=== PATIENT | male | born 1995 | race Caucasian/White ===

== ENCOUNTER 2018-11-13 15:35 | Emergency (ER) | payer BC ==
[~2018-11-13] VITALS: Ht 180.3 cm; Wt 124.9 kg
[~2018-11-13 15:35] MED LIST: DOCU-144 PO; HYDR25SU23 PR
[2018-11-13 15:45] VITALS: BP 169/93; PULSE 98; RESP 17; Ht 180.3 cm; Wt 124.9 kg
--- NOTE | 2018-11-13 17:05 | ERD ---
ER Documentation Chief Complaint Chief Complaint BLOOD STREAKS ON STOOL, MILD PAIN, NO ABD DISTENSION, NO N/V HPI 23-year-old male otherwise healthy presents complaining of rectal pain. He has a history of hemorrhoids and thinks this feels similar. He is also noticed some blood streaks in his stool and on the paper when he wipes. This is been going on for about a week but got worse today. He called his primary care doctor to make an appointment and the nurse on the phone scared him into thinking that he may have internal bleeding as he mentioned that his stools have been dark. ROS All systems reviewed and are negative except as per history of present illness. Medications Home Meds Active Scripts Docusate Sodium* (Colace*) 100 Mg Capsule, 100 MG PO TID, #30 CAP Prov:RAMON SANTIZO PA-C 11/13/18 Hydrocortisone Acetate (Anusol-Hc) 25 Mg Supp.rect, 1 SUPP IA BID, #12 SUPP.RECT Prov:RAMON SANTIZO PA-C 11/13/18 PMhx/Soc Hx Alcohol Use: No Hx Substance Use: No Hx Tobacco Use: No FmHx Family History: No diabetes Physical Exam Vitals Vital Signs Date Temp Pulse Resp B/P (MAP) Pulse Ox O2 O2 Flow FiO2 Time Delivery Rate 11/13/18 98.4 98 17 169/93 98 15:45 (118) Physical Exam Const: No acute distress Head: Resp: Clear to auscultation bilaterally Cardio: Regular rate and rhythm, no murmurs Abd: Soft, non tender, non distended. Normal bowel sounds Rectal Exam: Normal tone, nonthrombosed hemorrhoid, Positive control Stool: Brown Guaiac: Negative Procedures/MDM Patient has nonthrombosed hemorrhoid. Hemoccult is negative. Prescription for Colace and Anusol given. Patient counseled regarding my diagnostic impression and care plan. Prior to discharge all questions answered. Pt agrees with treatment plan and understands strict return precautions. Pt is instructed to follow up with primary care provider within 24-48 hours. Precautionary instructions provided including instructions to return to the ER if not improving or for any worsening or changing symptoms or concerns. Departure Diagnosis: Primary Impression: Hemorrhoids Condition: Stable Patient Instructions: Hemorrhoids Additional Instructions: Call your primary care doctor TOMORROW for an appointment during the next 1-2 days.See the doctor sooner or return here if your condition worsens before your appointment time. RAMON SANTIZO PA-C Nov 13, 2018 17:05
== END 2018-11-13 17:23 | disposition home or self-care (01) ==
LOC: FTE 15:35
DX: K64.9 Unspecified hemorrhoids (principal)
CPT/HCPCS: 99284